=== PATIENT | female | born 1940 | race African-American/Black ===

== ENCOUNTER 2019-01-14 13:10 | Day surgery (SDC) | payer MEDICARE, BC ==
[2019-01-13 14:37] VITALS: BMI 25.9
[2019-01-14] MEDS ORDERED: Lidocaine 1% w/Epinephrine 1:100K 20 ML VIAL ONE (14:49)
[2019-01-14] MEDS ORDERED: Ketorolac Tromethamine 30 MG/ML VIAL ONE (14:58)
[2019-01-14] MEDS ORDERED: PHENYLEPHRINE-NS 100 MCG/ML 10 ML SYRINGE ONE (14:58)
[2019-01-14] MEDS ORDERED: PROPOFOL 200 MG/20 ML VIAL ONE (14:58)
[2019-01-14] MEDS ORDERED: Ondansetron PF 4 MG/2 ML Vial ONE (14:58)
[2019-01-14] MEDS ORDERED: Dexamethasone 20 MG/5 ML VIAL ONE (14:58)
[2019-01-14] MEDS ORDERED: Lidocaine 1% PF 5 ML VIAL ONE (14:58)
[2019-01-14] MEDS ORDERED: Succinylcholine Chloride 20 MG/ML 10 ml SYRINGE FS ONE (14:58)
[2019-01-14] MEDS ORDERED: Fentanyl 100 MCG/2 ML VIAL ONE ×2 (15:20→16:34)
[2019-01-14 15:37] LABS: Platelet Count 168 thou/uL (130-400)
[2019-01-14] MEDS ORDERED: Clindamycin/D5W 900 mg/50 ml Premix Bag ONE (15:44)
[2019-01-14 15:57] LABS: Anion Gap 14 mmol/L (10-20); BUN (Urea Nitrogen) 13 mg/dL (9.8-20.1); Calc. Creatinine Clearance 72 mL/min (70-130); Calcium 9.6 mg/dL (7.8-10.44); Carbon Dioxide 23 mmol/L (23-31); Chloride 106 mmol/L (98-107); Estimated GFR-MDRD Greater than 90; Glucose 130 mg/dL (83-110); Potassium 4.3 mmol/L (3.5-5.1); Sodium 139 mmol/L (136-145)
--- NOTE | 2019-01-14 20:28 | OP ---
DATE OF PROCEDURE: 01/14/2019 PREOPERATIVE DIAGNOSES: 1. Right submandibular gland sialoadenitis. 2. Right submandibular gland sialolithiasis. POSTOPERATIVE DIAGNOSES: 1. Right submandibular gland sialoadenitis. 2. Right submandibular gland sialolithiasis. PROCEDURE PERFORMED: Excision of right submandibular gland. ESTIMATED BLOOD LOSS: Less than 10 mL. COMPLICATION: None. ANESTHESIA: GETA. DESCRIPTION OF PROCEDURE: Patient was taken to the operating room and placed supine on the table. General endotracheal anesthesia was obtained by the anesthesia staff. Tube was secured in the left lower lip. The shoulder roll was placed and the patient was prepped and draped in standard surgical fashion. 8 mL of 1% lidocaine with 1:100,000 epinephrine was injected into the skin crease 2 cm below the angle of the mandible and horizontal neck skin crease. Following this, incision was made with a 15 blade through skin, subcutaneous tissue, and the platysmal layer. Subplatysmal flaps were then elevated superiorly to the mandible. Following this, the fascia medially overlying the submandibular gland was then incised at the inferior most aspect of the right submandibular gland and this was then elevated superiorly, taking the right marginal mandibular nerve and elevating it off the gland as well. Following this, the facial artery and vein were suture ligated below the marginal mandibular nerve and the gland was displaced inferiorly. The right lingual nerve was identified, its post ganglionic fibers were identified and were suture ligated immediately adjacent to the gland. Following this, the facial vein which was coursing into the right submandibular gland was suture ligated on the posterior aspect of the gland. The gland was then elevated off the digastric muscle and the hypoglossal nerve was encountered anteriorly. The mylohyoid muscle was retracted itself from the submandibular duct. Following this, a right angle clamp was used to clasp the inflamed right submandibular duct along with a stone that was present in the distal portion of the duct. This duct was then suture ligated with 2-0 silk stitch. The patient tolerated the procedure well. The wound was irrigated. A drain was placed and the wound was closed using 3-0 Monocryl for the platysmal layer and 4-0 Monocryl for the subcuticular layer and Dermabond for the skin. The patient tolerated the procedure well. Job ID: [id number]
--- NOTE | 2019-01-15 07:52 | EKG ---
Test Reason : PREOP Blood Pressure : / mmHG Vent. Rate : 063 BPM Atrial Rate : 063 BPM P-R Int : 138 ms QRS Dur : 076 ms QT Int : 378 ms P-R-T Axes : 071 016 049 degrees QTc Int : 386 ms Normal sinus rhythm with sinus arrhythmia Normal ECG No previous ECGs available Confirmed by SARITHA TRONCOSO ([id number]) on 01/15/2019 7:51:55 AM Referred By: MIMI Confirmed By:SARITHA TRONCOSO
== END 2019-01-14 18:35 | disposition home or self-care (01) ==
LOC: SDC 13:10
PROVIDERS: ATTEND Otolaryngology Plastic Surgery within the Head & Neck
PROC: 0CBG0ZZ Excision of Right Submaxillary Gland, Open Approach (ICD-10-PCS; principal; 2019-01-14)
DX: K11.21 Acute sialoadenitis (principal); K11.23 Chronic sialoadenitis; K11.5 Sialolithiasis; E78.5 Hyperlipidemia, unspecified; I10 Essential (primary) hypertension; E11.9 Type 2 diabetes mellitus without complications; Z87.891 Personal history of nicotine dependence; Z79.82 Long term (current) use of aspirin; Z79.84 Long term (current) use of oral hypoglycemic drugs; Z79.899 Other long term (current) drug therapy; Z88.0 Allergy status to penicillin; Z88.8 Allergy status to other drugs, medicaments and biological substances
CPT/HCPCS: 36415; 80048; 85014; 85018; 85049; 88307; 93005; 93010; J1100; J1885; J2001; J2405; J2704; J3010; J3490

== ENCOUNTER 2019-01-29 16:12 | Day surgery (SDC) | payer MEDICARE, BC ==
[2019-01-28 15:59] VITALS: BMI 26.6
[~2019-01-29 16:12] MED LIST: Glycopyrrolate 0.2 MG/ML 5 ML SYRINGE ONE; Lidocaine 1% PF 5 ML VIAL ONE; Ondansetron PF 4 MG/2 ML Vial ONE; PHENYLEPHRINE-NS 100 MCG/ML 10 ML SYRINGE ONE; PROPOFOL 200 MG/20 ML VIAL ONE; Rocuronium Bromide 10 MG/ML (10ML VIAL) ONE; ePHEDrine 50 MG/ML VIAL ONE
[2019-01-29 17:07] LABS: #Basophils 0.1 thou/uL (0.0-0.2); #Eosinphils 0.2 thou/uL (0.0-0.7); #Lymphocytes 1.9 thou/uL (1.20-3.40); #Monocytes 0.5 thou/uL (0.11-0.59); #Neutrophils 3.9 thou/uL (1.40-6.50); %Basophils 1.1 % (0.0-1.0); %Eosinophils 2.7 % (0.0-10.0); %Lymphocytes 29.3 % (21.0-51.0); %Monocytes 6.9 % (0.0-10.0); Mean Corpuscular HGB CONC 32.5 g/dL (32.0-36.0); Mean Corpuscular Hemoglobin 30.6 pg (27.0-31.0); Mean Corpuscular Volume 94.3 fL (78.0-98.0); Mean Platelet Volume 7.8 fL (7.4-10.4); Platelet Count 261 thou/uL (130-400); RBC Distribution Width 12.1 % (11.5-14.5); Red Blood Cell (RBC) Count 4.24 mill/uL (4.20-5.40); White Blood Cell (WBC) Count 6.6 thou/uL (4.8-10.8)
[2019-01-29] MEDS ORDERED: Fentanyl 100 MCG/2 ML VIAL ONE ×2 (17:21→18:23)
[2019-01-29] MEDS ORDERED: Lidocaine 1% w/Epinephrine 1:100K 20 ML VIAL ONE (17:23)
[2019-01-29] MEDS ORDERED: Bacitracin Zinc Ointment 30 gm TUBE ONE (17:23)
[2019-01-29 17:24] LABS: Anion Gap 17 mmol/L (10-20); BUN (Urea Nitrogen) 10 mg/dL (9.8-20.1); Calc. Creatinine Clearance 72 mL/min (70-130); Calcium 9.8 mg/dL (7.8-10.44); Carbon Dioxide 21 mmol/L (23-31); Chloride 106 mmol/L (98-107); Estimated GFR-MDRD Greater than 90; Glucose 156 mg/dL (83-110); Potassium 3.8 mmol/L (3.5-5.1); Sodium 140 mmol/L (136-145)
[2019-01-29] MEDS ORDERED: HYDROcodone/Acetaminophen 5/325 mg Tablet ONE (19:45)
--- NOTE | 2019-01-30 13:58 | OP ---
DATE OF PROCEDURE: 01/29/2019 PREOPERATIVE DIAGNOSIS: Right submandibular abscess. POSTOPERATIVE DIAGNOSIS: Right submandibular abscess. PROCEDURE PERFORMED: Under direct laryngoscopy incision and drainage of right submandibular abscess. DESCRIPTION OF PROCEDURE: After consent was obtained, the patient was identified and brought to the OR and placed on the operating room table in supine position. Anesthesia with general anesthesia was obtained with the endotracheal tube and the patient was positioned for surgery. The patient underwent systematic examination of oral cavity, oropharynx, and no fluctuance or salivary stones were identified in the submandibular duct or floor of mouth. The larynx appeared normal hypopharynx and lateral pharyngeal wall. The tongue base was also within normal limits. We then prepped and draped the patient and extended the neck. The wound was opened at this site of previous surgery, and some of the absorbable sutures were removed. Gross amounts of purulence were then encountered and sent for culture. It was foul smelling, copiously irrigated with a liter of saline and finger dissected the entire surgical cavity to make sure there were any pockets of purulence left behind. A [place] was then placed in a deep aspect of the wound, and the wound was closed with interrupted sutures at the level of skin. The [place] was suture secured to the skin, and a sterile gauze dressing was placed. The patient was awakened, taken to recovery room in a stable condition prior to discharge home. Job ID: [id number]
== END 2019-01-29 20:28 | disposition home or self-care (01) ==
LOC: SDC 16:12
PROVIDERS: ATTEND Specialist
PROC: 0J940ZZ Drainage of Right Neck Subcutaneous Tissue and Fascia, Open Approach (ICD-10-PCS; principal; 2019-01-29)
PROC: 0CJS8ZZ Inspection of Larynx, Via Natural or Artificial Opening Endoscopic (ICD-10-PCS; 2019-01-29)
DX: K12.2 Cellulitis and abscess of mouth (principal); B96.89 Other specified bacterial agents as the cause of diseases classified elsewhere; E78.5 Hyperlipidemia, unspecified; I10 Essential (primary) hypertension; E11.9 Type 2 diabetes mellitus without complications; Z87.891 Personal history of nicotine dependence; Z79.84 Long term (current) use of oral hypoglycemic drugs; Z79.899 Other long term (current) drug therapy; Z88.0 Allergy status to penicillin; Z88.8 Allergy status to other drugs, medicaments and biological substances
CPT/HCPCS: 36415; 80048; 85025; 87070; 87077; 87205; J2001; J2405; J2704; J3010; J3490